=== PATIENT | female | born 1940 | race African-American/Black ===

== ENCOUNTER 2022-03-06 10:08 | Emergency (ER) | payer MEDICARE, MEDICAID ==
[~2022-03-06] VITALS: Ht 157.5 cm; Wt 50.0 kg
[2022-03-06] MEDS ORDERED: ACETAMINOPHEN 325MG TABLET PO ONE (10:30)
[2022-03-06] MEDS ORDERED: HYDROCODONE/ACETAMINOPHEN 5/325MG TABLET PO ONE (12:30)
[2022-03-06 22:00] VITALS: BP 113/80
== END 2022-03-07 00:35 ==
LOC: ER 10:08
DX: S09.8XXA Other specified injuries of head, initial encounter (principal); W18.39XA Other fall on same level, initial encounter; Y93.89 Activity, other specified; Y92.89 Other specified places as the place of occurrence of the external cause; Y99.8 Other external cause status; I48.91 Unspecified atrial fibrillation; F41.9 Anxiety disorder, unspecified; I11.0 Hypertensive heart disease with heart failure; I50.9 Heart failure, unspecified; J44.9 Chronic obstructive pulmonary disease, unspecified; F03.90 Unspecified dementia, unspecified severity, without behavioral disturbance, psychotic disturbance, mood disturbance, and anxiety
CPT/HCPCS: 73522; 93005; 99285

== ENCOUNTER 2022-08-07 09:21 | Inpatient (IN) | payer MEDICARE, MEDICAID ==
[~2022-08-07] VITALS: Ht 152.4 cm; Wt 46.3 kg
[2022-08-07 10:36] LABS: HEMOGLOBIN. 10.3 g/dL (12.0-16.0); MEAN CORPUSCULAR HEMOGLOBIN 25.2 pg (28.0-32.0); MEAN CORPUSCULAR VOLUME 85.5 fL (81.0-99.0); PLATELET 407 x1000/uL (130-400); RED CELL DISTRIBUTION WIDTH 17.1 % (11.6-14.6)
[2022-08-07 11:14] LABS: PLATELET ESTIMATE SLIGHTLY INCREASED
[2022-08-07] MEDS ORDERED: ENOXAPARIN 60MG/0.6ML SYR SUBCUT ONE (11:15)
[2022-08-07 12:16] LABS: BG BASE EXCESS 5.7 mmol/L (-2.0-2.0); BG CARBOXYHEMOGLOBIN 0.7 % (0.5-1.5); BG DEOXYHEMOGLOBIN 9.1 % (0.0-5.0); BG FRACTION INSPIRED OXYGEN 21; BG METHEMOGLOBIN 0.2 % (0.0-1.5); BG OXYGEN SATURATION 90.8 % (92.0-98.5); BG PCO2 55.4 mmHg (35.0-45.0); BG PH 7.379 (7.350-7.450); BG PO2 58.3 mmHg (75.0-100.0); BG SAMPLE SITE RIGHT RADIAL; BG TOTAL HEMOGLOBIN 10.6 g/dL (12.0-18.0); BG VENT MODE ROOM AIR
[2022-08-07] MEDS ORDERED: ALBUTEROL (0.083%) 2.5MG/3ML NEB HHN STA (12:17)
[2022-08-07] MEDS ORDERED: IPRATROPIUM BROMIDE (0.02%) 0.5MG/2.5ML NEB HHN STA (12:17)
[2022-08-07] MEDS ORDERED: METHYLPREDNISOLONE SOD SUCC 125 MG/2 ML VIAL IV STA (12:17)
[2022-08-07 13:54] LABS: CHLORIDE 105 mEq/L (98-107)
[2022-08-07] MEDS ORDERED: IPRATROPIUM/ALBUTEROL 0.5-3(2.5)MG/3ML NEB HHN PRN ×2 (14:45→18:00)
[2022-08-07 15:36] LABS: BG BASE EXCESS 4.8 mmol/L (-2.0-2.0); BG CARBOXYHEMOGLOBIN 0.3 % (0.5-1.5); BG DEOXYHEMOGLOBIN 1.3 % (0.0-5.0); BG FRACTION INSPIRED OXYGEN 50; BG HCO3 ACT 31.7 mmol/L (22.0-26.0); BG METHEMOGLOBIN 0.3 % (0.0-1.5); BG OXYGEN SATURATION 98.7 % (92.0-98.5); BG OXYHEMOGLOBIN 98.1 % (94.0-97.0); BG PCO2 60.6 mmHg (35.0-45.0); BG PH 7.337 (7.350-7.450); BG PO2 146.4 mmHg (75.0-100.0); BG SAMPLE SITE RIGHT BRACHIAL; BG TOTAL HEMOGLOBIN 9.9 g/dL (12.0-18.0); BG VENT MODE MASK - BIPAP
[2022-08-07] MEDS ORDERED: IOHEXOL-350 100 ML BOTTLE ONE (17:59)
[2022-08-07 18:00] VITALS: BP_SYST 112; BP_DIAS 60; BP_DIAS 74
[2022-08-07] MEDS ORDERED: CLONIDINE 0.1MG TABLET PO PRN (18:00)
[2022-08-07] MEDS ORDERED: HYDROCODONE/ACETAMINOPHEN 5/325MG TABLET PO PRN (18:00)
[2022-08-07] MEDS ORDERED: LORAZEPAM 0.5MG TABLET PO PRN (18:00)
[2022-08-07] MEDS ORDERED: DOCUSATE SODIUM 100MG CAPSULE PO PRN (18:00)
[2022-08-07] MEDS ORDERED: ONDANSETRON HCL 4MG/2ML INJ IV PRN (18:00)
[2022-08-07] MEDS ORDERED: ACETAMINOPHEN 325MG TABLET PO PRN ×2 (18:00)
[2022-08-07] MEDS ORDERED: NALOXONE HCL 0.4MG/ML VIAL IV PRN (18:15)
[2022-08-07 20:00] VITALS: BP 130/93
[2022-08-07] MEDS: IPRATROPIUM/ALBUTEROL 0.5-3(2.5)MG/3ML NEB HHN SCH (20:42)
[2022-08-07] MEDS: PIPERACILLIN/TAZOBACTAM 3.375 G in DEXTROSE 5% WATER 50 ML IV SCH (20:47)
[2022-08-07 22:00] VITALS: BP 115/60
[2022-08-07] MEDS ORDERED: DEXTROSE 50% WATER 50ML SYRINGE IV PRN (22:30)
[2022-08-08] VITALS (12 sets, daily range): BP systolic 127–157; BP diastolic 68–91
[2022-08-08] MEDS: IPRATROPIUM/ALBUTEROL 0.5-3(2.5)MG/3ML NEB HHN SCH ×4 (00:21→20:46)
[2022-08-08 05:34] LABS: HEMATOCRIT. 29.3 % (36.0-48.0); HEMOGLOBIN. 8.9 g/dL (12.0-16.0); MEAN CORPUSCULAR HEMOGLOBIN 24.9 pg (28.0-32.0); MEAN CORPUSCULAR VOLUME 81.6 fL (81.0-99.0); MEAN PLATELET VOLUME 8.2 fl (7.4-10.4); PLATELET 361 x1000/uL (130-400); RED BLOOD CELL COUNT 3.59 mill/uL (4.2-5.4); RED CELL DISTRIBUTION WIDTH 16.3 % (11.6-14.6)
[2022-08-08 05:50] LABS: CHLORIDE 105 mEq/L (98-107)
[2022-08-08] MEDS: BLOOD SUGAR DIAGNOSTIC STRIP TEST SCH ×4 (06:30→20:35)
[2022-08-08] MEDS: INSULIN LISPRO 100 UNITS/ML SUBCUT SCH ×4 (07:00→20:35)
[2022-08-08 08:08] LABS: BG BASE EXCESS 7.9 mmol/L (-2.0-2.0); BG CARBOXYHEMOGLOBIN 0.5 % (0.5-1.5); BG DEOXYHEMOGLOBIN 1.2 % (0.0-5.0); BG METHEMOGLOBIN 0.3 % (0.0-1.5); BG OXYGEN SATURATION 98.8 % (92.0-98.5); BG PCO2 49.5 mmHg (35.0-45.0); BG PH 7.442 (7.350-7.450); BG PO2 128.1 mmHg (75.0-100.0); BG SAMPLE SITE RIGHT BRACHIAL; BG TOTAL HEMOGLOBIN 9.5 g/dL (12.0-18.0); BG VENT MODE MASK - BIPAP
[2022-08-08] MEDS ORDERED: ENOXAPARIN 40MG/0.4ML SYR SUBCUT NR (11:00)
[2022-08-08] MEDS: PIPERACILLIN/TAZOBACTAM 3.375 G in DEXTROSE 5% WATER 50 ML IV SCH ×3 (11:13→22:29)
[2022-08-08 11:21] LABS: PLATELET ESTIMATE NORMAL
[2022-08-08 11:55] LABS: INR 1.2; PROTHROMBIN TIME 12.6 sec (9.6-11.0)
[2022-08-08] MEDS: SODIUM CHLORIDE 0.9% 1,000 ML IV SCH (20:01)
[2022-08-09] VITALS (10 sets, daily range): BP systolic 128–155; BP diastolic 67–104
[2022-08-09] MEDS: IPRATROPIUM/ALBUTEROL 0.5-3(2.5)MG/3ML NEB HHN SCH ×3 (03:30→14:50)
[2022-08-09 04:35] LABS: HEMATOCRIT. 30.5 % (36.0-48.0); HEMOGLOBIN. 9.7 g/dL (12.0-16.0); MEAN CORPUSCULAR HEMOGLOBIN 25.2 pg (28.0-32.0); MEAN PLATELET VOLUME 7.9 fl (7.4-10.4); PLATELET 424 x1000/uL (130-400); RED BLOOD CELL COUNT 3.86 mill/uL (4.2-5.4); RED CELL DISTRIBUTION WIDTH 16.2 % (11.6-14.6)
[2022-08-09 04:48] LABS: INR 1.1; PROTHROMBIN TIME 11.8 sec (9.6-11.0)
[2022-08-09 05:12] LABS: CHLORIDE 108 mEq/L (98-107); HDL CHOLESTEROL 24 mg/dL (40-59); LDL CHOLESTEROL 79 mg/dL (5-100); T4 FREE 1.34 ng/dL (0.76-1.46)
[2022-08-09 05:20] LABS: PLATELET ESTIMATE NORMAL
[2022-08-09] MEDS: PIPERACILLIN/TAZOBACTAM 3.375 G in DEXTROSE 5% WATER 50 ML IV SCH ×2 (05:50→15:41)
[2022-08-09] MEDS: BLOOD SUGAR DIAGNOSTIC STRIP TEST SCH ×4 (05:50→21:09)
[2022-08-09] MEDS: INSULIN LISPRO 100 UNITS/ML SUBCUT SCH ×4 (06:06→21:00)
[2022-08-09] MEDS: ENOXAPARIN 40MG/0.4ML SYR SUBCUT SCH (12:29)
[2022-08-09] MEDS: SODIUM CHLORIDE 0.9% 1,000 ML IV SCH (17:20)
[2022-08-09] MEDS ORDERED: IPRATROPIUM BROMIDE (0.02%) 0.5MG/2.5ML NEB HHN PRN (17:45)
[2022-08-09] MEDS ORDERED: ALBUTEROL (0.083%) 2.5MG/3ML NEB HHN PRN (17:45)
[2022-08-09] MEDS: IPRATROPIUM BROMIDE (0.02%) 0.5MG/2.5ML NEB HHN SCH (21:39)
[2022-08-09] MEDS: ALBUTEROL (0.083%) 2.5MG/3ML NEB HHN SCH (21:39)
[2022-08-10] MEDS: PIPERACILLIN/TAZOBACTAM 3.375 G in DEXTROSE 5% WATER 50 ML IV SCH ×3 (01:56→15:33)
[2022-08-10] MEDS: ALBUTEROL (0.083%) 2.5MG/3ML NEB HHN SCH ×3 (02:12→14:53)
[2022-08-10] MEDS: IPRATROPIUM BROMIDE (0.02%) 0.5MG/2.5ML NEB HHN SCH ×3 (02:12→14:54)
[2022-08-10 04:00] VITALS: BP 156/83
[2022-08-10] MEDS ORDERED: HYDRALAZINE 20MG/ML VIAL IV PRN (04:15)
[2022-08-10] MEDS: BLOOD SUGAR DIAGNOSTIC STRIP TEST SCH ×3 (05:58→16:49)
[2022-08-10] MEDS: INSULIN LISPRO 100 UNITS/ML SUBCUT SCH ×3 (07:10→16:49)
[2022-08-10 08:15] VITALS: BP 156/90
[2022-08-10] MEDS: ENOXAPARIN 40MG/0.4ML SYR SUBCUT SCH ×2 (11:19→11:49)
[2022-08-10 12:07] VITALS: BP 164/94
[2022-08-10] MEDS: SODIUM CHLORIDE 0.9% 1,000 ML IV SCH (15:34)
[2022-08-10 16:14] VITALS: BP 138/92
[2022-08-10 17:00] VITALS: BP 138/92
== END 2022-08-10 19:51 | DRG 189 ==
LOC: ER 09:21 → MICUNO 11:51 → EDBEDREQ 11:52 → EDBEDREQTM 11:52 → 7EST 08-09 17:29
PROVIDERS: ADMIT Internal Medicine; ATTEND Internal Medicine
PROC: 5A09357 Assistance with Respiratory Ventilation, Less than 24 Consecutive Hours, Continuous Positive Airway Pressure (ICD-10-PCS; principal; 2022-08-07)
DX: J96.01 Acute respiratory failure with hypoxia (principal); J44.1 Chronic obstructive pulmonary disease with (acute) exacerbation; I13.0 Hypertensive heart and chronic kidney disease with heart failure and stage 1 through stage 4 chronic kidney disease, or unspecified chronic kidney disease; M86.8X7 Other osteomyelitis, ankle and foot; J96.02 Acute respiratory failure with hypercapnia; I48.0 Paroxysmal atrial fibrillation; I50.9 Heart failure, unspecified; Z20.822 Contact with and (suspected) exposure to COVID-19; F03.90 Unspecified dementia, unspecified severity, without behavioral disturbance, psychotic disturbance, mood disturbance, and anxiety; D63.1 Anemia in chronic kidney disease; E04.2 Nontoxic multinodular goiter; E87.5 Hyperkalemia; D72.829 Elevated white blood cell count, unspecified; I25.10 Atherosclerotic heart disease of native coronary artery without angina pectoris; I73.9 Peripheral vascular disease, unspecified; L89.90 Pressure ulcer of unspecified site, unspecified stage; N18.9 Chronic kidney disease, unspecified; F41.9 Anxiety disorder, unspecified; K21.9 Gastro-esophageal reflux disease without esophagitis; R73.9 Hyperglycemia, unspecified; R91.1 Solitary pulmonary nodule; F17.200 Nicotine dependence, unspecified, uncomplicated; Z74.01 Bed confinement status; Z79.01 Long term (current) use of anticoagulants; Z86.16 Personal history of COVID-19
CPT/HCPCS: 36415; 36600; 71045; 71275; 80048; 80053; 80061; 82375; 82805; 82962; 83036; 83735; 83880; 84132; 84145; 84439; 84443; 84481; 84484; 85025; 85379; 87426; 87804; 92610; 93005; 93306; 93970; 94640; 94644; 94660; 99285; C9803; J1650; J1815; J2543; J2930; J7030; J7060; Q9967

== ENCOUNTER 2022-11-07 11:18 | Inpatient (IN) | payer MEDICARE, MEDICAID ==
[~2022-11-07] VITALS: Ht 152.4 cm; Wt 44.9 kg
[2022-11-07] VITALS (11 sets, daily range): BP systolic 109–201; BP diastolic 57–96; PULSE 88–144; RESP 18–39; TEMP 97.7–98.8
[2022-11-07 11:57] LABS: BG BASE EXCESS 5.4 mmol/L (-2.0-2.0); BG CARBOXYHEMOGLOBIN 0.8 % (0.5-1.5); BG DEOXYHEMOGLOBIN 4.9 % (0.0-5.0); BG HCO3 ACT 32.5 mmol/L (22.0-26.0); BG METHEMOGLOBIN 0.5 % (0.0-1.5); BG OXYHEMOGLOBIN 93.8 % (94.0-97.0); BG PCO2 58.9 mmHg (35.0-45.0); BG PH 7.359 (7.350-7.450); BG PO2 73.1 mmHg (75.0-100.0); BG SAMPLE SITE LEFT RADIAL; BG TOTAL HEMOGLOBIN 13.1 g/dL (12.0-18.0); BG VENT MODE NASAL CANNULA
[2022-11-07 12:25] LABS: HEMATOCRIT. 36.9 % (36.0-48.0); HEMOGLOBIN. 11.7 g/dL (12.0-16.0); MEAN CORPUSCULAR HEMOGLOBIN 26.6 pg (28.0-32.0); MEAN CORPUSCULAR VOLUME 83.8 fL (81.0-99.0); MEAN PLATELET VOLUME 8.1 fl (7.4-10.4); PLATELET 273 x1000/uL (130-400); RED BLOOD CELL COUNT 4.41 mill/uL (4.2-5.4)
[2022-11-07] MEDS ORDERED: DILTIAZEM HCL 5MG/ML 5ML VIAL IV ONE (12:30)
[2022-11-07 12:35] LABS: CHLORIDE 114 mEq/L (98-107)
[2022-11-07] MEDS ORDERED: DILTIAZEM HCL 5MG/ML 5ML VIAL IV SCH (13:30)
[2022-11-07] MEDS ORDERED: AZITHROMYCIN 500MG/250ML 250 ML IV SCH (13:30)
[2022-11-07] MEDS ORDERED: CEFTRIAXONE 1GM PREMIX 50 ML IV SCH (13:30)
[2022-11-07 17:02] LABS: PLATELET ESTIMATE NORMAL
[2022-11-07] MEDS ORDERED: DEXTROSE 50% WATER 50ML SYRINGE IV PRN (19:15)
[2022-11-07] MEDS ORDERED: VANCOMYCIN 1G PREMIX 200 ML IV NR (21:00)
[2022-11-07] MEDS: BLOOD SUGAR DIAGNOSTIC STRIP TEST SCH (21:26)
[2022-11-07] MEDS: PIPERACILLIN/TAZOBACTAM 3.375 G in DEXTROSE 5% WATER 50 ML IV SCH (21:26)
[2022-11-07] MEDS: INSULIN LISPRO 100 UNITS/ML SUBCUT SCH (21:27)
[2022-11-07] MEDS: APIXABAN 5 MG TABLET PO SCH (21:27)
[2022-11-07] MEDS: FUROSEMIDE 40MG/4ML VIAL IVP SCH (21:27)
[2022-11-07] MEDS: METOPROLOL SUCCINATE 50MG ER TABLET PO SCH (21:28)
[2022-11-07] MEDS ORDERED: CLONIDINE 0.1MG TABLET PO PRN (22:00)
[2022-11-08] VITALS (16 sets, daily range): BP systolic 108–149; BP diastolic 34–98; PULSE 79–123; RESP 20–40; TEMP 97.5–98.7; O2SAT 96
[2022-11-08] MEDS: PIPERACILLIN/TAZOBACTAM 3.375 G in DEXTROSE 5% WATER 50 ML IV SCH ×3 (05:10→22:21)
[2022-11-08 07:11] LABS: HEMATOCRIT. 38.8 % (36.0-48.0); HEMOGLOBIN. 12.1 g/dL (12.0-16.0); MEAN CORPUSCULAR HEMOGLOBIN 26.6 pg (28.0-32.0); MEAN CORPUSCULAR VOLUME 85.1 fL (81.0-99.0); MEAN PLATELET VOLUME 8.7 fl (7.4-10.4); PLATELET 224 x1000/uL (130-400); RED BLOOD CELL COUNT 4.55 mill/uL (4.2-5.4); RED CELL DISTRIBUTION WIDTH 18.2 % (11.6-14.6)
[2022-11-08] MEDS: BLOOD SUGAR DIAGNOSTIC STRIP TEST SCH ×4 (07:45→21:00)
[2022-11-08 07:48] LABS: CHLORIDE 113 mEq/L (98-107)
[2022-11-08] MEDS: INSULIN LISPRO 100 UNITS/ML SUBCUT SCH ×4 (08:04→22:22)
[2022-11-08] MEDS: LOSARTAN POTASSIUM 50 MG TABLET PO SCH (10:33)
[2022-11-08] MEDS: FUROSEMIDE 40MG/4ML VIAL IVP SCH (10:34)
[2022-11-08] MEDS: APIXABAN 5 MG TABLET PO SCH (10:34)
[2022-11-08] MEDS ORDERED: IPRATROPIUM/ALBUTEROL 0.5-3(2.5)MG/3ML NEB HHN PRN (11:30)
[2022-11-08] MEDS: IPRATROPIUM BROMIDE (0.02%) 0.5MG/2.5ML NEB HHN SCH ×2 (14:00→20:42)
[2022-11-08] MEDS: METOPROLOL SUCCINATE 50MG ER TABLET PO SCH ×2 (14:36→22:22)
[2022-11-08] MEDS: APIXABAN 2.5 MG TABLET PO SCH (18:44)
[2022-11-08] MEDS ORDERED: VANCOMYCIN 1G PREMIX 200 ML IV SCH (21:00)
[2022-11-08] MEDS: VANCOMYCIN 750MG PREMIX 150 ML IV SCH (22:21)
[2022-11-09] VITALS (13 sets, daily range): BP systolic 113–151; BP diastolic 37–90; PULSE 74–97; RESP 19–39; TEMP 98–98.5; O2SAT 96–98
[2022-11-09] MEDS: IPRATROPIUM BROMIDE (0.02%) 0.5MG/2.5ML NEB HHN SCH ×2 (02:31→21:50)
[2022-11-09 03:43] LABS: PLATELET ESTIMATE NORMAL
[2022-11-09] MEDS: PIPERACILLIN/TAZOBACTAM 3.375 G in DEXTROSE 5% WATER 50 ML IV SCH ×3 (05:13→22:31)
[2022-11-09] MEDS: BLOOD SUGAR DIAGNOSTIC STRIP TEST SCH ×4 (07:54→21:01)
[2022-11-09] MEDS: INSULIN LISPRO 100 UNITS/ML SUBCUT SCH ×4 (08:00→21:02)
[2022-11-09 08:13] LABS: BASOPHILS % 0.1 % (0.0-2.0); EOSINOPHILS % 0.6 % (0.0-5.0); HEMATOCRIT. 37.9 % (36.0-48.0); HEMOGLOBIN. 11.9 g/dL (12.0-16.0); LYMPHOCYTES % 7.2 % (20.0-50.0); MEAN CORPUSCULAR VOLUME 82.9 fL (81.0-99.0); MEAN PLATELET VOLUME 8.9 fl (7.4-10.4); MONOCYTES % 6.8 % (2.0-8.0); NEUTROPHILS % 85.3 % (40.0-76.0); PLATELET 252 x1000/uL (130-400); RED BLOOD CELL COUNT 4.58 mill/uL (4.2-5.4); RED CELL DISTRIBUTION WIDTH 17.7 % (11.6-14.6)
[2022-11-09 08:15] LABS: CHLORIDE 112 mEq/L (98-107)
[2022-11-09] MEDS: APIXABAN 2.5 MG TABLET PO SCH ×2 (08:37→17:14)
[2022-11-09] MEDS: METOPROLOL SUCCINATE 50MG ER TABLET PO SCH ×2 (08:38→21:01)
[2022-11-09] MEDS: LOSARTAN POTASSIUM 50 MG TABLET PO SCH (08:38)
[2022-11-09] MEDS: VANCOMYCIN 750MG PREMIX 150 ML IV SCH (21:00)
[2022-11-10] VITALS (10 sets, daily range): BP systolic 101–136; BP diastolic 52–76; PULSE 69–101; RESP 18–39; TEMP 98.4–98.8; O2SAT 96–97
[2022-11-10] MEDS: IPRATROPIUM BROMIDE (0.02%) 0.5MG/2.5ML NEB HHN SCH ×3 (02:15→14:26)
[2022-11-10] MEDS: PIPERACILLIN/TAZOBACTAM 3.375 G in DEXTROSE 5% WATER 50 ML IV SCH ×2 (05:05→14:00)
[2022-11-10 07:05] LABS: HEMATOCRIT. 35.2 % (36.0-48.0); HEMOGLOBIN. 11.1 g/dL (12.0-16.0); MEAN CORPUSCULAR HEMOGLOBIN 26.1 pg (28.0-32.0); MEAN CORPUSCULAR VOLUME 82.5 fL (81.0-99.0); MEAN PLATELET VOLUME 8.8 fl (7.4-10.4); PLATELET 260 x1000/uL (130-400); RED BLOOD CELL COUNT 4.27 mill/uL (4.2-5.4); RED CELL DISTRIBUTION WIDTH 17.7 % (11.6-14.6)
[2022-11-10 07:21] LABS: CHLORIDE 107 mEq/L (98-107)
[2022-11-10] MEDS: BLOOD SUGAR DIAGNOSTIC STRIP TEST SCH ×2 (08:01→12:41)
[2022-11-10] MEDS: INSULIN LISPRO 100 UNITS/ML SUBCUT SCH ×2 (08:19→12:52)
[2022-11-10] MEDS: METOPROLOL SUCCINATE 50MG ER TABLET PO SCH (09:15)
[2022-11-10] MEDS: APIXABAN 2.5 MG TABLET PO SCH (09:15)
[2022-11-10] MEDS: LOSARTAN POTASSIUM 50 MG TABLET PO SCH (09:15)
[2022-11-10] MEDS ORDERED: IOHEXOL-300 100 ML BOTTLE ONE ×2 (10:46→14:00)
[2022-11-10] MEDS ORDERED: VANCOMYCIN 750MG PREMIX 150 ML IV SCH (18:00)
[2022-11-11 09:57] LABS: PLATELET ESTIMATE NORMAL
== END 2022-11-10 16:15 | DRG 981 ==
LOC: ER 12:01 → EDBEDREQTM 13:33 → EDBEDREQ 13:33 → 5EST 14:29 → EDBEDREQ 14:30 → 5EST 16:10
PROVIDERS: ADMIT Internal Medicine; ATTEND Internal Medicine
PROC: 5A09357 Assistance with Respiratory Ventilation, Less than 24 Consecutive Hours, Continuous Positive Airway Pressure (ICD-10-PCS; principal; 2022-11-07)
PROC: 0KBP0ZZ Excision of Left Hip Muscle, Open Approach (ICD-10-PCS; 2022-11-09)
DX: J18.9 Pneumonia, unspecified organism (principal); E43 Unspecified severe protein-calorie malnutrition; L89.94 Pressure ulcer of unspecified site, stage 4; J96.01 Acute respiratory failure with hypoxia; E87.0 Hyperosmolality and hypernatremia; M86.672 Other chronic osteomyelitis, left ankle and foot; E87.29 Other acidosis; I13.0 Hypertensive heart and chronic kidney disease with heart failure and stage 1 through stage 4 chronic kidney disease, or unspecified chronic kidney disease; J44.0 Chronic obstructive pulmonary disease with (acute) lower respiratory infection; J44.1 Chronic obstructive pulmonary disease with (acute) exacerbation; Z68.1 Body mass index [BMI] 19.9 or less, adult; E11.51 Type 2 diabetes mellitus with diabetic peripheral angiopathy without gangrene; E11.621 Type 2 diabetes mellitus with foot ulcer; F03.90 Unspecified dementia, unspecified severity, without behavioral disturbance, psychotic disturbance, mood disturbance, and anxiety; I48.0 Paroxysmal atrial fibrillation; L97.522 Non-pressure chronic ulcer of other part of left foot with fat layer exposed; E11.22 Type 2 diabetes mellitus with diabetic chronic kidney disease; E11.65 Type 2 diabetes mellitus with hyperglycemia; E11.69 Type 2 diabetes mellitus with other specified complication; E78.5 Hyperlipidemia, unspecified; N18.9 Chronic kidney disease, unspecified; I25.10 Atherosclerotic heart disease of native coronary artery without angina pectoris; I50.9 Heart failure, unspecified; R91.1 Solitary pulmonary nodule; F41.9 Anxiety disorder, unspecified; K21.9 Gastro-esophageal reflux disease without esophagitis; Z74.01 Bed confinement status
CPT/HCPCS: 36415; 36600; 71045; 71260; 80048; 80053; 80202; 82040; 82375; 82805; 82962; 83036; 83880; 84134; 84484; 85025; 93005; 94640; 94660; 99291; J0456; J0696; J1815; J1940; J2543; J3370; J3490; J7060; Q9967

== ENCOUNTER 2023-07-12 06:18 | Inpatient (IN) | payer MEDICARE, MEDICAID ==
[~2023-07-12] VITALS: Ht 162.6 cm; Wt 50.3 kg
[2023-07-12] VITALS (12 sets, daily range): BP systolic 91–117; BP diastolic 50–67; PULSE 90–100; RESP 18–46; TEMP 97.2–97.8; O2SAT 90
[~2023-07-12 06:18] MED LIST: AMOX1TAB16 MT; APIX2.5T MT; ASCO-386 GT; ASPI-1497 GT; ATOR20TA PO; BISA10SU62 RC; CLON0.1T PEG; COR6 GT; DILT60TA35 PO; DOCU-150 PO; FLUT1DIS3 INH; GABA-529 GT; IPRA3AMP9 HHN; LOSA100T33 PO; METF-414 GT; MONT-39 GT; MULT-647 PO; PANT40SU PEG; SULF1TAB48 MT; TOPUD PO; TRAM50TA3 PO
[2023-07-12] MEDS: SODIUM CHLORIDE 0.9% 1,000 ML IV ONE (06:42)
[2023-07-12] MEDS: PIPERACILLIN/TAZO 3.375G/50ML 50 ML IV ONE (06:42)
[2023-07-12 06:59] LABS: HEMATOCRIT. 28.3 % (36.0-48.0); HEMOGLOBIN. 8.7 g/dL (12.0-16.0); MEAN CORPUSCULAR HGB CONC 30.8 g/dL (31.0-37.0); MEAN CORPUSCULAR VOLUME 84.6 fL (81.0-99.0); PLATELET 270 x1000/uL (130-400); RED BLOOD CELL COUNT 3.35 mill/uL (4.2-5.4); RED CELL DISTRIBUTION WIDTH 17.9 % (11.6-14.6); WHITE BLOOD COUNT 16.3 x1000/uL (4.5-11.0)
[2023-07-12 07:07] LABS: DIFFERENTIAL COMMENT 1
[2023-07-12] MEDS: VANCOMYCIN 1G PREMIX 200 ML IV ONE (07:20)
[2023-07-12 07:32] LABS: PROTHROMBIN TIME 11.6 sec (9.6-11.0)
[2023-07-12] MEDS: SODIUM CHLORIDE 0.9% 1000ML BAG (SEPSIS BOLUS) IV ONE (07:57)
[2023-07-12 08:07] LABS: ALANINE AMINOTRANSFERASE 11 IU/L (10-49); ALBUMIN 3.1 g/dL (3.2-4.8); ASPARTATE AMINOTRANSFERASE 22 IU/L (<34); BILIRUBIN TOTAL 0.2 mg/dL (0.1-1.0); CALCIUM 8.5 mg/dL (8.7-10.4); CARBON DIOXIDE 32 mEq/L (21-32); CHLORIDE 109 mEq/L (98-107); CREATININE 1.2 mg/dL (0.6-1.0); GLUCOSE 175 mg/dL (70-105); POTASSIUM 5.8 mEq/L (3.5-5.1); SODIUM 147 mEq/L (136-145); UREA NITROGEN BLOOD 57 mg/dL (9-23)
[2023-07-12 08:13] LABS: TROPONIN I HIGH SENSITIVITY 89 ng/L (3.0-34)
[2023-07-12] MEDS: ACETAMINOPHEN 650MG SUPP PR SCH (08:15)
[2023-07-12 10:09] LABS: TROPONIN I HIGH SENSITIVITY 94 ng/L (3.0-34)
[2023-07-12 11:20] LABS: CLARITY URINE CLOUDY (CLEAR); COLOR URINE YELLOW (YELLOW); GLUCOSE URINE NEGATIVE (NEGATIVE); KETONES URINE TRACE (NEGATIVE); LEUKOCYTE ESTERASE URINE NEGATIVE (NEGATIVE); NITRITE URINE NEGATIVE (NEGATIVE); OCCULT BLOOD URINE NEGATIVE (NEGATIVE); PROTEIN URINE 2+ (NEGATIVE); SPECIFIC GRAVITY URINE 1.022 (1.005-1.030); UROBILINOGEN URINE 0.2 E.U./dL (0.2-1.0)
[2023-07-12 12:00] LABS: RBC URINE 0-2 /hpf (0-2)
[2023-07-12 12:00] LABS: NUCLEATED RED BLOOD CELLS 1 /100 WBC; PLATELET ESTIMATE NORMAL
[2023-07-12 12:01] LABS: ANISOCYTOSIS 1+
[2023-07-12 12:01] LABS: FINE GRANULAR CASTS URINE 0-5 /lpf
[2023-07-12 12:02] LABS: SQUAMOUS EPITHELIAL CELL URINE 2+ /lpf (RARE/1+)
[2023-07-12 12:03] LABS: BACTERIA URINE 2+
[2023-07-12] MEDS ORDERED: DIPHENHYDRAMINE 50MG/ML VIAL IV PRN (12:30)
[2023-07-12] MEDS ORDERED: IPRATROPIUM/ALBUTEROL 0.5-3(2.5)MG/3ML NEB HHN PRN (12:30)
[2023-07-12] MEDS ORDERED: ONDANSETRON HCL 4MG/2ML INJ IV PRN (12:30)
[2023-07-12 13:15] LABS: CREATININE 1.1 mg/dL (0.6-1.0); POTASSIUM 5.4 mEq/L (3.5-5.1)
[2023-07-12] MEDS ORDERED: PIPERACILLIN/TAZO 3.375G/50ML 50 ML IV SCH (14:00)
[2023-07-12] MEDS: MEROPENEM 1G/100ML 100 ML IV SCH (17:00)
[2023-07-13] VITALS (22 sets, daily range): BP systolic 105–136; BP diastolic 61–80; PULSE 87–113; RESP 22–47; TEMP 97.1–98
[2023-07-13 06:48] LABS: HEMATOCRIT. 23.2 % (36.0-48.0); MEAN CORPUSCULAR HEMOGLOBIN 25.7 pg (28.0-32.0); MEAN CORPUSCULAR HGB CONC 30.4 g/dL (31.0-37.0); MEAN CORPUSCULAR VOLUME 84.5 fL (81.0-99.0); MEAN PLATELET VOLUME 9.7 fl (7.4-10.4); PLATELET 249 x1000/uL (130-400); RED BLOOD CELL COUNT 2.74 mill/uL (4.2-5.4); RED CELL DISTRIBUTION WIDTH 18.1 % (11.6-14.6); WHITE BLOOD COUNT 14.9 x1000/uL (4.5-11.0)
[2023-07-13 06:50] LABS: ALANINE AMINOTRANSFERASE 10 IU/L (10-49); ALBUMIN 2.9 g/dL (3.2-4.8); ASPARTATE AMINOTRANSFERASE 22 IU/L (<34); BILIRUBIN TOTAL < 0.2 mg/dL (0.1-1.0); CALCIUM 8.5 mg/dL (8.7-10.4); CARBON DIOXIDE 36 mEq/L (21-32); CHLORIDE 113 mEq/L (98-107); CREATININE 1.2 mg/dL (0.6-1.0); GLUCOSE 192 mg/dL (70-105); POTASSIUM 5.5 mEq/L (3.5-5.1); PROTEIN TOTAL 5.4 g/dL (6.0-8.3); SODIUM 153 mEq/L (136-145); UREA NITROGEN BLOOD 75 mg/dL (9-23)
[2023-07-13 08:37] LABS: DIFFERENTIAL COMMENT 1
[2023-07-13] MEDS: VANCOMYCIN 750MG PREMIX 150 ML IV SCH (09:51)
[2023-07-13 10:53] LABS: BG BASE EXCESS 8.2 mmol/L (-2.0-2.0); BG CARBOXYHEMOGLOBIN 0.4 % (0.5-1.5); BG DEOXYHEMOGLOBIN 1.5 % (0.0-5.0); BG FRACTION INSPIRED OXYGEN 60; BG HCO3 ACT 34.7 mmol/L (22.0-26.0); BG METHEMOGLOBIN 0.5 % (0.0-1.5); BG OXYGEN SATURATION 98.5 % (92.0-98.5); BG OXYHEMOGLOBIN 97.6 % (94.0-97.0); BG PCO2 63.3 mmHg (35.0-45.0); BG PH 7.357 (7.350-7.450); BG PO2 143.8 mmHg (75.0-100.0); BG SAMPLE SITE RIGHT BRACHIAL; BG TOTAL HEMOGLOBIN 7.4 g/dL (12.0-18.0); BG VENT MODE MASK - BIPAP
[2023-07-13] MEDS: SODIUM POLYSTYRENE SULFONATE 15 G/60 ML BOT PO NR (14:15)
[2023-07-13] MEDS: AZITHROMYCIN 500 MG TABLET PO NR (14:15)
[2023-07-13] MEDS: DEXTROSE 5% WATER 1,000 ML IV SCH (14:16)
[2023-07-13] MEDS: SODIUM HYPOCHLORITE (0.25%) 480ML SOLUTION (HALF STRENGTH) TOP SCH (16:41)
[2023-07-13] MEDS: IPRATROPIUM/ALBUTEROL 0.5-3(2.5)MG/3ML NEB HHN SCH (20:35)
[2023-07-13 21:50] LABS: ANISOCYTOSIS 1+; PLATELET ESTIMATE NORMAL
[2023-07-14] VITALS (19 sets, daily range): BP systolic 89–165; BP diastolic 53–73; PULSE 89–106; RESP 20–43; TEMP 97.3–97.7
[2023-07-14 01:26] LABS: CARBON DIOXIDE 38 mEq/L (21-32); CHLORIDE 113 mEq/L (98-107); CREATININE 1.2 mg/dL (0.6-1.0); GLUCOSE 251 mg/dL (70-105); POTASSIUM 4.2 mEq/L (3.5-5.1); SODIUM 155 mEq/L (136-145); UREA NITROGEN BLOOD 78 mg/dL (9-23)
[2023-07-14 01:27] LABS: PHOSPHORUS 3.6 mg/dL (2.5-4.9)
[2023-07-14 01:35] LABS: HEMATOCRIT. 29.6 % (36.0-48.0); HEMOGLOBIN. 9.7 g/dL (12.0-16.0); MEAN CORPUSCULAR HEMOGLOBIN 28.1 pg (28.0-32.0); MEAN CORPUSCULAR HGB CONC 32.7 g/dL (31.0-37.0); MEAN CORPUSCULAR VOLUME 85.9 fL (81.0-99.0); MEAN PLATELET VOLUME 9.4 fl (7.4-10.4); PLATELET 246 x1000/uL (130-400); RED BLOOD CELL COUNT 3.45 mill/uL (4.2-5.4); RED CELL DISTRIBUTION WIDTH 16.6 % (11.6-14.6); WHITE BLOOD COUNT 18.6 x1000/uL (4.5-11.0)
[2023-07-14 01:40] LABS: DIFFERENTIAL COMMENT 1
[2023-07-14 03:03] LABS: ANISOCYTOSIS 1+; PLATELET ESTIMATE NORMAL
[2023-07-14 08:38] LABS: BG BASE EXCESS 8.5 mmol/L (-2.0-2.0); BG CARBOXYHEMOGLOBIN 0.2 % (0.5-1.5); BG DEOXYHEMOGLOBIN 1.6 % (0.0-5.0); BG FRACTION INSPIRED OXYGEN 60; BG HCO3 ACT 36.2 mmol/L (22.0-26.0); BG METHEMOGLOBIN 0.1 % (0.0-1.5); BG OXYGEN SATURATION 98.4 % (92.0-98.5); BG OXYHEMOGLOBIN 98.1 % (94.0-97.0); BG PCO2 71.1 mmHg (35.0-45.0); BG PH 7.325 (7.350-7.450); BG PO2 134.3 mmHg (75.0-100.0); BG SAMPLE SITE LEFT BRACHIAL; BG TOTAL HEMOGLOBIN 9.7 g/dL (12.0-18.0); BG TOTAL RESPIRATORY RATE 40 b/min; BG VENT MODE MASK - BIPAP
[2023-07-14] MEDS: AZITHROMYCIN 250 MG TABLET PO SCH (08:44)
[2023-07-14] MEDS: BUDESONIDE 0.5MG/2ML NEB HHN SCH (08:51)
[2023-07-14] MEDS: VANCOMYCIN 500MG PREMIX 100 ML IV SCH (14:00)
[2023-07-15] VITALS (17 sets, daily range): BP systolic 98–127; BP diastolic 54–89; PULSE 107–134; RESP 19–54; TEMP 97–99.8
[2023-07-15 07:03] LABS: HEMATOCRIT. 28.4 % (36.0-48.0); HEMOGLOBIN. 9.1 g/dL (12.0-16.0); MEAN CORPUSCULAR HEMOGLOBIN 28.1 pg (28.0-32.0); MEAN CORPUSCULAR VOLUME 87.8 fL (81.0-99.0); MEAN PLATELET VOLUME 9.4 fl (7.4-10.4); PLATELET 253 x1000/uL (130-400); RED BLOOD CELL COUNT 3.24 mill/uL (4.2-5.4); RED CELL DISTRIBUTION WIDTH 17.5 % (11.6-14.6); WHITE BLOOD COUNT 13.9 x1000/uL (4.5-11.0)
[2023-07-15 07:11] LABS: CALCIUM 8.4 mg/dL (8.7-10.4); CARBON DIOXIDE 38 mEq/L (21-32); CHLORIDE 111 mEq/L (98-107); GLUCOSE 204 mg/dL (70-105); IRON 12 ug/dL (50-170); SODIUM 152 mEq/L (136-145); TOTAL IRON BINDING CAPACITY 154 ug/dl (250-425); UREA NITROGEN BLOOD 69 mg/dL (9-23)
[2023-07-15 07:18] LABS: FERRITIN 456 ng/mL (10-291); FOLIC ACID (FOLATE) SERUM 6.76 ng/mL (>5.38); VITAMIN B12 SERUM 1253 pg/mL (211-911)
[2023-07-15 07:31] LABS: DIFFERENTIAL COMMENT 1
[2023-07-15 09:25] LABS: BG BASE EXCESS 10.9 mmol/L (-2.0-2.0); BG CARBOXYHEMOGLOBIN 0.3 % (0.5-1.5); BG DEOXYHEMOGLOBIN 1.7 % (0.0-5.0); BG FRACTION INSPIRED OXYGEN 60; BG HCO3 ACT 38.8 mmol/L (22.0-26.0); BG METHEMOGLOBIN 0.3 % (0.0-1.5); BG OXYGEN SATURATION 98.3 % (92.0-98.5); BG OXYHEMOGLOBIN 97.7 % (94.0-97.0); BG PH 7.332 (7.350-7.450); BG SAMPLE SITE RIGHT BRACHIAL; BG TOTAL HEMOGLOBIN 9.4 g/dL (12.0-18.0); BG TOTAL RESPIRATORY RATE 40 b/min; BG VENT MODE MASK - BIPAP
[2023-07-15] MEDS: PANTOPRAZOLE SODIUM 40 MG/VIAL IV SCH (09:45)
[2023-07-15 11:31] LABS: ANISOCYTOSIS 1+; PLATELET ESTIMATE NORMAL
[2023-07-15 12:25] LABS: BG BASE EXCESS 12.6 mmol/L (-2.0-2.0); BG CARBOXYHEMOGLOBIN 0.3 % (0.5-1.5); BG DEOXYHEMOGLOBIN 17.3 % (0.0-5.0); BG HCO3 ACT 39.1 mmol/L (22.0-26.0); BG METHEMOGLOBIN 0.3 % (0.0-1.5); BG OXYGEN SATURATION 82.6 % (92.0-98.5); BG OXYHEMOGLOBIN 82.1 % (94.0-97.0); BG PCO2 62.5 mmHg (35.0-45.0); BG PH 7.414 (7.350-7.450); BG PO2 42.9 mmHg (75.0-100.0); BG SAMPLE SITE RIGHT BRACHIAL; BG TOTAL HEMOGLOBIN 9.9 g/dL (12.0-18.0); BG VENT MODE MASK - BIPAP
[2023-07-15] MEDS: METHYLPREDNISOLONE SOD SUCC 40MG/ML (ACT-O-VIAL) IV NR (18:57)
[2023-07-16] VITALS (16 sets, daily range): BP systolic 93–156; BP diastolic 54–81; PULSE 93–121; RESP 20–37; TEMP 97.5–99.8
[2023-07-16] MEDS: CLONIDINE 0.1MG TABLET PO PRN (05:13)
[2023-07-16 06:03] LABS: HEMATOCRIT. 28.3 % (36.0-48.0); HEMOGLOBIN. 9.1 g/dL (12.0-16.0); MEAN CORPUSCULAR HEMOGLOBIN 28.4 pg (28.0-32.0); MEAN CORPUSCULAR VOLUME 88.7 fL (81.0-99.0); MEAN PLATELET VOLUME 9.6 fl (7.4-10.4); PLATELET 305 x1000/uL (130-400); RED CELL DISTRIBUTION WIDTH 17.9 % (11.6-14.6)
[2023-07-16 06:18] LABS: CALCIUM 8.5 mg/dL (8.7-10.4); CREATININE 1.2 mg/dL (0.6-1.0); POTASSIUM 4.2 mEq/L (3.5-5.1)
[2023-07-16 06:49] LABS: DIFFERENTIAL COMMENT 1
[2023-07-16 10:46] LABS: ANISOCYTOSIS 1+; PLATELET ESTIMATE NORMAL
[2023-07-16 11:08] LABS: BG BASE EXCESS 9.5 mmol/L (-2.0-2.0); BG CARBOXYHEMOGLOBIN 0.3 % (0.5-1.5); BG DEOXYHEMOGLOBIN 2.1 % (0.0-5.0); BG FRACTION INSPIRED OXYGEN 55; BG HCO3 ACT 38.1 mmol/L (22.0-26.0); BG METHEMOGLOBIN 0.3 % (0.0-1.5); BG OXYGEN SATURATION 97.9 % (92.0-98.5); BG OXYHEMOGLOBIN 97.3 % (94.0-97.0); BG PCO2 81.8 mmHg (35.0-45.0); BG PH 7.286 (7.350-7.450); BG PO2 116.3 mmHg (75.0-100.0); BG SAMPLE SITE RIGHT BRACHIAL; BG TOTAL HEMOGLOBIN 9.1 g/dL (12.0-18.0); BG VENT MODE MASK - BIPAP
[2023-07-16] MEDS: FOLIC ACID 1MG TABLET PO SCH (11:13)
[2023-07-16] MEDS: IRON SUCROSE COMPLEX 100 MG/5 ML ML IV SCH (11:18)
[2023-07-16] MEDS: SODIUM CHLORIDE 0.45% 1,000 ML IV SCH (11:24)
[2023-07-17] VITALS (18 sets, daily range): BP systolic 114–154; BP diastolic 57–90; PULSE 95–122; RESP 16–49; TEMP 97.5–98.2
[2023-07-17 06:31] LABS: HEMATOCRIT. 26.5 % (36.0-48.0); HEMOGLOBIN. 8.5 g/dL (12.0-16.0); MEAN CORPUSCULAR HEMOGLOBIN 28.5 pg (28.0-32.0); MEAN PLATELET VOLUME 9.3 fl (7.4-10.4); PLATELET 295 x1000/uL (130-400); RED BLOOD CELL COUNT 2.97 mill/uL (4.2-5.4); RED CELL DISTRIBUTION WIDTH 17.9 % (11.6-14.6); WHITE BLOOD COUNT 16.4 x1000/uL (4.5-11.0)
[2023-07-17 07:16] LABS: DIFFERENTIAL COMMENT 1
[2023-07-17 07:36] LABS: CALCIUM 8.3 mg/dL (8.7-10.4); CARBON DIOXIDE 36 mEq/L (21-32); CHLORIDE 108 mEq/L (98-107); GLUCOSE 157 mg/dL (70-105); POTASSIUM 3.7 mEq/L (3.5-5.1); SODIUM 148 mEq/L (136-145); UREA NITROGEN BLOOD 67 mg/dL (9-23)
[2023-07-17 09:06] LABS: BG BASE EXCESS 8.6 mmol/L (-2.0-2.0); BG CARBOXYHEMOGLOBIN 0.3 % (0.5-1.5); BG DEOXYHEMOGLOBIN 3.3 % (0.0-5.0); BG FRACTION INSPIRED OXYGEN 40; BG HCO3 ACT 36.3 mmol/L (22.0-26.0); BG METHEMOGLOBIN 0.1 % (0.0-1.5); BG OXYGEN SATURATION 96.7 % (92.0-98.5); BG OXYHEMOGLOBIN 96.3 % (94.0-97.0); BG PCO2 70.3 mmHg (35.0-45.0); BG PH 7.331 (7.350-7.450); BG PO2 88.6 mmHg (75.0-100.0); BG SAMPLE SITE RIGHT BRACHIAL; BG VENT MODE MASK - BIPAP
[2023-07-17] MEDS: DILTIAZEM HCL 30MG TABLET PO SCH (11:26)
[2023-07-17] MEDS: DILTIAZEM HCL 60MG TABLET PO SCH (17:27)
[2023-07-17 17:47] LABS: ANISOCYTOSIS 1+; PLATELET ESTIMATE NORMAL
[2023-07-18] VITALS (15 sets, daily range): BP systolic 96–152; BP diastolic 69–101; PULSE 79–117; RESP 24–48; TEMP 97.5–99.3
[2023-07-18 06:09] LABS: HEMATOCRIT. 27.8 % (36.0-48.0); HEMOGLOBIN. 8.7 g/dL (12.0-16.0); MEAN CORPUSCULAR HEMOGLOBIN 28.3 pg (28.0-32.0); MEAN CORPUSCULAR HGB CONC 31.3 g/dL (31.0-37.0); MEAN CORPUSCULAR VOLUME 90.5 fL (81.0-99.0); MEAN PLATELET VOLUME 8.9 fl (7.4-10.4); PLATELET 326 x1000/uL (130-400); RED BLOOD CELL COUNT 3.07 mill/uL (4.2-5.4); RED CELL DISTRIBUTION WIDTH 18.1 % (11.6-14.6); WHITE BLOOD COUNT 16.4 x1000/uL (4.5-11.0)
[2023-07-18 06:17] LABS: DIFFERENTIAL COMMENT 1
[2023-07-18 07:02] LABS: CALCIUM 8.4 mg/dL (8.7-10.4); CARBON DIOXIDE 34 mEq/L (21-32); CHLORIDE 105 mEq/L (98-107); CREATININE 0.9 mg/dL (0.6-1.0); GLUCOSE 191 mg/dL (70-105); POTASSIUM 3.7 mEq/L (3.5-5.1); SODIUM 144 mEq/L (136-145); UREA NITROGEN BLOOD 60 mg/dL (9-23)
[2023-07-18] MEDS: POTASSIUM CHLORIDE 20MEQ/PACKET PO SCH (08:54)
[2023-07-18 11:00] LABS: BG BASE EXCESS 6.9 mmol/L (-2.0-2.0); BG CARBOXYHEMOGLOBIN 0.1 % (0.5-1.5); BG DEOXYHEMOGLOBIN 9.2 % (0.0-5.0); BG FRACTION INSPIRED OXYGEN 40; BG METHEMOGLOBIN 0.2 % (0.0-1.5); BG OXYGEN SATURATION 90.8 % (92.0-98.5); BG OXYHEMOGLOBIN 90.5 % (94.0-97.0); BG PCO2 48.6 mmHg (35.0-45.0); BG PH 7.436 (7.350-7.450); BG PO2 59.5 mmHg (75.0-100.0); BG SAMPLE SITE RIGHT RADIAL; BG TOTAL RESPIRATORY RATE 53 b/min; BG VENT MODE MASK - BIPAP
[2023-07-18] MEDS ORDERED: LIDOCAINE HCL 1% 10 MG/ML 10ML VIAL ONE (11:19)
[2023-07-18] MEDS: DILTIAZEM HCL 90MG TABLET PO SCH (12:01)
[2023-07-18] MEDS: ACETAMINOPHEN 325MG TABLET PO PRN (12:02)
[2023-07-18 13:50] LABS: ANISOCYTOSIS 1+; PLATELET ESTIMATE NORMAL
== END 2023-07-18 21:42 | DRG 871 ==
LOC: ER 06:18 → 5EST 09:35 → EDBEDREQ 09:37 → EDBEDREQSVC 10:00
PROVIDERS: ADMIT Internal Medicine; ATTEND Internal Medicine
PROC: 5A09357 Assistance with Respiratory Ventilation, Less than 24 Consecutive Hours, Continuous Positive Airway Pressure (ICD-10-PCS; 2023-07-12)
PROC: 5A09357 Assistance with Respiratory Ventilation, Less than 24 Consecutive Hours, Continuous Positive Airway Pressure (ICD-10-PCS; 2023-07-13)
PROC: 30233N1 Transfusion of Nonautologous Red Blood Cells into Peripheral Vein, Percutaneous Approach (ICD-10-PCS; 2023-07-13)
PROC: 5A09557 Assistance with Respiratory Ventilation, Greater than 96 Consecutive Hours, Continuous Positive Airway Pressure (ICD-10-PCS; 2023-07-14)
PROC: 5A09357 Assistance with Respiratory Ventilation, Less than 24 Consecutive Hours, Continuous Positive Airway Pressure (ICD-10-PCS; 2023-07-14)
PROC: 02HV33Z Insertion of Infusion Device into Superior Vena Cava, Percutaneous Approach (ICD-10-PCS; principal; 2023-07-18)
PROC: B548ZZA Ultrasonography of Superior Vena Cava, Guidance (ICD-10-PCS; 2023-07-18)
DX: A41.9 Sepsis, unspecified organism (principal); J96.21 Acute and chronic respiratory failure with hypoxia; L89.154 Pressure ulcer of sacral region, stage 4; J96.22 Acute and chronic respiratory failure with hypercapnia; N17.9 Acute kidney failure, unspecified; E46 Unspecified protein-calorie malnutrition; I13.0 Hypertensive heart and chronic kidney disease with heart failure and stage 1 through stage 4 chronic kidney disease, or unspecified chronic kidney disease; Z68.1 Body mass index [BMI] 19.9 or less, adult; E87.0 Hyperosmolality and hypernatremia; Z93.1 Gastrostomy status; D64.9 Anemia, unspecified; E86.9 Volume depletion, unspecified; E87.5 Hyperkalemia; J44.9 Chronic obstructive pulmonary disease, unspecified; K21.9 Gastro-esophageal reflux disease without esophagitis; I50.9 Heart failure, unspecified; E11.621 Type 2 diabetes mellitus with foot ulcer; E11.51 Type 2 diabetes mellitus with diabetic peripheral angiopathy without gangrene; E78.5 Hyperlipidemia, unspecified; N18.9 Chronic kidney disease, unspecified; E61.1 Iron deficiency; E88.09 Other disorders of plasma-protein metabolism, not elsewhere classified; R65.20 Severe sepsis without septic shock; L97.522 Non-pressure chronic ulcer of other part of left foot with fat layer exposed; E11.22 Type 2 diabetes mellitus with diabetic chronic kidney disease; E11.65 Type 2 diabetes mellitus with hyperglycemia; B96.20 Unspecified Escherichia coli [E. coli] as the cause of diseases classified elsewhere; F03.C0 Unspecified dementia, severe, without behavioral disturbance, psychotic disturbance, mood disturbance, and anxiety; I48.0 Paroxysmal atrial fibrillation; F41.9 Anxiety disorder, unspecified; M62.461 Contracture of muscle, right lower leg; R13.12 Dysphagia, oropharyngeal phase; Z74.01 Bed confinement status; Z79.01 Long term (current) use of anticoagulants; Z79.51 Long term (current) use of inhaled steroids; Z86.16 Personal history of COVID-19; Z87.891 Personal history of nicotine dependence; Z79.4 Long term (current) use of insulin
CPT/HCPCS: 36415; 36573; 36600; 71045; 73630; 80048; 80053; 80202; 81003; 82270; 82310; 82375; 82607; 82728; 82746; 82805; 82962; 83540; 83550; 83605; 83735; 84100; 84145; 84484; 85025; 86850; 86900; 86920; 93005; 93306; 93970; 94640; 94660; 99291; A6261; C1725; C9113; J2185; J2543; J2920; J3370; J3490; J7030; J7070; J7626; P9016